=== PATIENT | male | born 1975 | race Caucasian/White ===

== ENCOUNTER 2019-10-01 02:49 | Emergency (ER) | payer OTHER ==
--- NOTE | 2019-10-01 03:05 | EDPHYS ---
Physician Documentation [facility] Name: Alber Hannah Age: 44 yrs Sex: Male : 1975 Arrival Date: 10/01/2019 Time: 02:50 Bed 18 Private MD: ED Physician Valente Cabrales HPI: 10/01 03:01 This 44 yrs old Male presents to ER via EMS with complaints of Suicidal karyn Ideation. 03:01 The patient presents to the emergency department with depression, over a , over a karyn relationship. Onset: The symptoms/episode began/occurred 2 day(s) ago. Past psychiatric history: Prior diagnosis: depression. Associated signs and symptoms: The patient has no apparent associated signs or symptoms. The patient has not experienced similar symptoms in the past. Historical: - Allergies: 03:03 No Known Allergies; wh - Home Meds: 03:03 atorvastatin oral oral [Active]; fenofibrate oral oral [Active]; glimepiride Oral wh [Active]; losartan oral oral [Active]; Metformin Oral [Active]; Tradjenta oral oral [Active]; - PMHx: 03:03 Diabetes - NIDDM; Hyperlipidemia; Hypertension; wh - Immunization history:: Adult Immunizations up to date. - Social history:: Smoking status: Patient uses tobacco products. - Family history:: not pertinent. - Ebola Screening: : Patient negative for fever greater than or equal to 101.5 degrees Fahrenheit, and additional compatible Ebola Virus Disease symptoms Patient denies exposure to infectious person. ROS: 03:01 Constitutional: Negative for fever, chills, and weight loss, Eyes: Negative for injury, karyn pain, redness, and discharge, ENT: Negative for injury, pain, and discharge, Neck: Negative for injury, pain, and swelling, Cardiovascular: Negative for chest pain, palpitations, and edema, Respiratory: Negative for shortness of breath, cough, wheezing, and pleuritic chest pain, Abdomen/GI: Negative for abdominal pain, nausea, vomiting, diarrhea, and constipation, Back: Negative for injury and pain, : Negative for injury, bleeding, discharge, and swelling, MS/Extremity: Negative for injury and deformity, Skin: Negative for injury, rash, and discoloration, Neuro: Negative for headache, weakness, numbness, tingling, and seizure, Allergy/Immunology: Negative for hives, rash, and allergies, Endocrine: Negative for neck swelling, polydipsia, polyuria, polyphagia, and marked weight changes, Hematologic/Lymphatic: Negative for swollen nodes, abnormal bleeding, and unusual bruising. 03:01 Psych: Positive for anxiety, depression, suicidal ideation. Exam: 03:01 Constitutional: This is a well developed, well nourished patient who is awake, alert, karyn and in no acute distress. Head/Face: Normocephalic, atraumatic. Eyes: Pupils equal round and reactive to light, extra-ocular motions intact. Lids and lashes normal. Conjunctiva and sclera are non-icteric and not injected. Cornea within normal limits. Periorbital areas with no swelling, redness, or edema. ENT: Nares patent. No nasal discharge, no septal abnormalities noted. Tympanic membranes are normal and external auditory canals are clear. Oropharynx with no redness, swelling, or masses, exudates, or evidence of obstruction, uvula midline. Mucous membranes moist. Neck: Trachea midline, no thyromegaly or masses palpated, and no cervical lymphadenopathy. Supple, full range of motion without nuchal rigidity, or vertebral point tenderness. No Meningismus. Chest/axilla: Normal chest wall appearance and motion. Nontender with no deformity. No lesions are appreciated. Cardiovascular: Regular rate and rhythm with a normal S1 and S2. No gallops, murmurs, or rubs. Normal PMI, no JVD. No pulse deficits. Respiratory: Lungs have equal breath sounds bilaterally, clear to auscultation and percussion. No rales, rhonchi or wheezes noted. No increased work of breathing, no retractions or nasal flaring. Abdomen/GI: Soft, non-tender, with normal bowel sounds. No distension or tympany. No guarding or rebound. No evidence of tenderness throughout. Back: No spinal tenderness. No costovertebral tenderness. Full range of motion. Male : Normal genitalia with no discharge or lesions. Skin: Warm, dry with normal turgor. Normal color with no rashes, no lesions, and no evidence of cellulitis. MS/ Extremity: Pulses equal, no cyanosis. Neurovascular intact. Full, normal range of motion. Neuro: Awake and alert, GCS 15, oriented to person, place, time, and situation. Cranial nerves II-XII grossly intact. Motor strength 5/5 in all extremities. Sensory grossly intact. Cerebellar exam normal. Normal gait. 03:01 Psych: Behavior/mood is cooperative, anxious, Affect is animated, Oriented to person, place, time, Patient has no thoughts/intents to harm self or others. Judgement / Insight is normal. Memory is normal. Delusions/hallucinations are not present. Vital Signs: 03:03 BP 141 / 108; Pulse 110; Resp 18; Temp 98.3; Pulse Ox 95% ; Weight 97.52 kg; Height 5 wh ft. 9 in. (175.26 cm); 05:26 BP 105 / 58 LA Sitting (auto/reg); Pulse 92 MON; Resp 18 S; Temp 98.4(O); Pulse Ox 96% ds4 on R/A; Pain 0/10; 08:28 BP 128 / 67; Pulse 87; Resp 18; Temp 98.0; Pulse Ox 99% on R/A; ph 03:03 Body Mass Index 31.75 (97.52 kg, 175.26 cm) wh MDM: 02:56 Patient medically screened. [facility] 03:03 Data reviewed: vital signs, nurses notes, lab test result(s), EKG. [facility] 10/01 03:01 Order name: Acetaminophen; Complete Time: 05:16 [facility] 10/01 03:01 Order name: Basic Metabolic Panel; Complete Time: 05:16 [facility] 10/01 03:01 Order name: CBC with Diff; Complete Time: 05:16 [facility] 10/01 03:01 Order name: ETOH Level; Complete Time: 05:16 [facility] 10/01 03:01 Order name: Hepatic Function; Complete Time: 05:16 [facility] 10/01 03:01 Order name: PT-INR; Complete Time: 05:16 [facility] 10/01 03:01 Order name: Ptt, Activated; Complete Time: 05:16 [facility] 10/01 03:01 Order name: Salicylate; Complete Time: 05:16 [facility] 10/01 03:01 Order name: Urine Drug Screen; Complete Time: 05:16 [facility] 10/01 03:01 Order name: TSH; Complete Time: 05:16 [facility] 10/01 03:13 Order name: Urine Dipstick--Ancillary (enter results) [place] 10/01 03:13 Order name: Urine Dipstick-Ancillary; Complete Time: 05:16 [facility] 10/01 03:01 Order name: EKG; Complete Time: 03:03 [facility] 10/01 03:01 Order name: EKG - Nurse/Tech; Complete Time: 04:34 [facility] 10/01 03:01 Order name: Labs collected and sent; Complete Time: 03:57 [facility] 10/01 03:01 Order name: Urine Dipstick-Ancillary (obtain specimen); Complete Time: 03:45 [facility] 10/01 07:36 Order name: Diet Regular; Complete Time: 07:37 ph Administered Medications: 03:45 Not Given (Patient Refused): Thiamine 100 mg IV at per protocol once ea 03:45 Not Given (Patient Refused): NS 0.9% 1000 ml IV at 1 bolus Per protocol; 1000 mL bolus ea Disposition: 10/01/19 03:04 Transfer ordered to [facility]. Diagnosis are Major depressive disorder, recurrent, Suicidal ideations, Alcohol abuse with intoxication. - Reason for transfer: Higher level of care. - Accepting physician is to psych. - Condition is Fair. - Problem is new. - Symptoms have improved. Signatures: Dispatcher [employer] [facility] Valente Cabrales MD MD cha Hall, Patricia, RN RN Linnea Sinha Elena RN ea Corrections: (The following items were deleted from the chart) 05:18 03:04 10/01/2019 03:04 Transfer ordered to [facility]. Diagnosis is karyn Major depressive disorder, recurrent; Suicidal ideations. Reason for transfer: Higher level of care. Accepting physician is to psych. Condition is Fair. Problem is new. Symptoms have improved. [facility] 08:29 05:18 10/01/2019 03:04 Transfer ordered to [facility]. Diagnosis is ph Major depressive disorder, recurrent; Suicidal ideations; Alcohol abuse with intoxication. Reason for transfer: Higher level of care. Accepting physician is to psych. Condition is Fair. Problem is new. Symptoms have improved. [facility]
--- NOTE | 2019-10-01 03:05 | ER ---
Nurse's Notes [facility] Name: Alber Hannah Age: 44 yrs Sex: Male : 1975 Arrival Date: 10/01/2019 Time: 02:50 Bed 18 Private MD: Diagnosis: Major depressive disorder, recurrent;Suicidal ideations;Alcohol abuse with intoxication Presentation: 10/01 02:55 Presenting complaint: EMS states: PT is feeling suicidal and has plans in place. Pt wh states this time last year he felt the same way too. Transition of care: patient was not received from another setting of care. Onset of symptoms was October 01, 2019. Risk Assessment: Do you want to hurt yourself or someone else? Patient reports desire/thoughts of hurting themselves or someone else. Provider notified. Initial Sepsis Screen: Does the patient meet any 2 criteria? HR > 90 bpm. Does the patient have a suspected source of infection? No. Patient's initial sepsis screen is negative. Care prior to arrival: None. 02:55 Method Of Arrival: EMS: [facility] 02:55 Acuity: JORJE 2 Historical: - Allergies: 03:03 No Known Allergies; wh - Home Meds: 03:03 atorvastatin oral oral [Active]; fenofibrate oral oral [Active]; glimepiride Oral wh [Active]; losartan oral oral [Active]; Metformin Oral [Active]; Tradjenta oral oral [Active]; - PMHx: 03:03 Diabetes - NIDDM; Hyperlipidemia; Hypertension; wh - Immunization history:: Adult Immunizations up to date. - Social history:: Smoking status: Patient uses tobacco products. - Family history:: not pertinent. - Ebola Screening: : Patient negative for fever greater than or equal to 101.5 degrees Fahrenheit, and additional compatible Ebola Virus Disease symptoms Patient denies exposure to infectious person. Screenin:58 Abuse screen: Denies threats or abuse. Denies injuries from another. Nutritional screening: No deficits noted. Tuberculosis screening: No symptoms or risk factors identified. Fall Risk None identified. Assessment: 02:58 General: Appears in no apparent distress. Behavior is anxious, uncooperative. Pain: wh Denies pain. Neuro: Level of Consciousness is awake, alert, obeys commands, Oriented to person, place, time, situation, Appropriate for age. Cardiovascular: Heart tones S1 S2. Respiratory: Airway is patent Respiratory effort is even, unlabored, Respiratory pattern is regular, symmetrical, Breath sounds are clear bilaterally. GI: Abdomen is flat, non-distended. : No signs and/or symptoms were reported regarding the genitourinary system. EENT: No signs and/or symptoms were reported regarding the EENT system. Derm: Skin is intact, is healthy with good turgor, Skin is pink, warm \\T\\ dry. normal. Musculoskeletal: Circulation, motion, and sensation intact. 03:37 Reassessment: Pt refused blood draw and EKG. States "you and the doctor can kiss my ea ass, you are not sticking me with a needle!!" Provider notified, charge nurse at bedside educating pt. Pt agreed to blood draw. 04:00 Reassessment: Patient and/or family updated on plan of care and expected duration. Pain ea level reassessed. Patient is alert, oriented x 3, equal unlabored respirations, skin warm/dry/pink. Sitter at bedside. 05:00 Reassessment: Pt resting with eyes closed, respirations even and unlabored, chest ea expansions even and symmetrical. No s/s of pain or discomfort noted at this time. 07:00 Reassessment: Patient appears in no apparent distress at this time. Patient and/or ph family updated on plan of care and expected duration. Pain level reassessed. Pt asleep in recliner, equal and unlabored respirations. 07:50 Reassessment: Patient appears in no apparent distress at this time. Patient and/or ph family updated on plan of care and expected duration. Pain level reassessed. Patient is alert, oriented x 3, equal unlabored respirations, skin warm/dry/pink. Report called to [facility], transfer form signed by pt. 08:27 Reassessment: Patient appears in no apparent distress at this time. Patient is alert, ph oriented x 3, equal unlabored respirations, skin warm/dry/pink. Pt eating breakfast, [facility] at bedside, pt transferred to [facility]. Psych: 02:57 Subjective: Patient's mood is irritable, Delusions are denied, Hallucinations are wh denied Having thoughts of suicide. Objective: Patient is uncooperative, Speech is normal, Affect is flat. Interventions: Removed personal items and placed in bag. Patient placed in hospital gown. Searched person for dangerous items. Urine collected and sent for urine drug test. Belonging list filled out. Suicide Risk Assessment: Sad Person Scale: Sex of patient: Male: Score 1 point. Age of patient: Score 0 point if patient falls outside of specified age parameters. Depression: Score 1 point if signs of depression are present. Previous Attempt: Score 0 point if patient has not previously attempted suicide. Substance Abuse: Score 0 point if patient does not abuse alcohol or drugs. Rational Thinking: Score 0 point if patient has rational thinking. Safety Checks: Personal items have been removed. Door is open. No visitors are present at this time. Pt denies substance abuse. Commitment: Patient will be a voluntary commitment. Vital Signs: 03:03 BP 141 / 108; Pulse 110; Resp 18; Temp 98.3; Pulse Ox 95% ; Weight 97.52 kg; Height 5 wh ft. 9 in. (175.26 cm); 05:26 BP 105 / 58 LA Sitting (auto/reg); Pulse 92 MON; Resp 18 S; Temp 98.4(O); Pulse Ox 96% ds4 on R/A; Pain 0/10; 08:28 BP 128 / 67; Pulse 87; Resp 18; Temp 98.0; Pulse Ox 99% on R/A; ph 03:03 Body Mass Index 31.75 (97.52 kg, 175.26 cm) ED Course: 02:50 Patient arrived in ED. ds1 02:56 Valente Cabrales MD is Attending Physician. karyn 02:57 Triage completed. wh 02:59 Arm band placed on right wrist. wh 03:00 Safety checks: Items removed: yes. Door open/sign placed on door: yes. Family/friend ds4 present: no. Sitter present: Yes. 03:03 Patient has correct armband on for positive identification. Placed in gown. Bed in low wh position. Call light in reach. Side rails up X 1. Sitter at bedside. 03:15 Safety checks: Items removed: yes. Door open/sign placed on door: yes. Family/friend ds4 present: no. Sitter present: Yes. 03:30 Safety checks: Items removed: yes. Door open/sign placed on door: yes. Family/friend ds4 present: no. Sitter present: Yes. 03:45 Safety checks: Items removed: yes. Door open/sign placed on door: yes. Family/friend ds4 present: no. Sitter present: Yes. 04:00 Safety checks: Items removed: yes. Door open/sign placed on door: yes. Family/friend ds4 present: no. Sitter present: Yes. 04:15 Safety checks: Items removed: yes. Door open/sign placed on door: yes. Family/friend ds4 present: no. Sitter present: Yes. 04:30 Safety checks: Items removed: yes. Door open/sign placed on door: yes. Family/friend ds4 present: no. Sitter present: Yes. 04:45 Safety checks: Items removed: yes. Door open/sign placed on door: yes. Family/friend ds4 present: no. Sitter present: Yes. 05:00 Safety checks: Items removed: yes. Door open/sign placed on door: yes. Family/friend ds4 present: no. Sitter present: Yes. 05:15 Safety checks: Items removed: yes. Door open/sign placed on door: yes. Family/friend ds4 present: no. Sitter present: Yes. 05:30 Safety checks: Items removed: yes. Door open/sign placed on door: yes. Family/friend ds4 present: no. Sitter present: Yes. 05:45 Safety checks: Items removed: yes. Door open/sign placed on door: yes. Family/friend ds4 present: no. Sitter present: Yes. 06:00 Safety checks: Items removed: yes. Door open/sign placed on door: yes. Family/friend ds4 present: no. Sitter present: Yes. 06:15 Safety checks: Items removed: yes. Door open/sign placed on door: yes. Family/friend ds4 present: no. Sitter present: Yes. 06:30 Safety checks: Items removed: yes. Door open/sign placed on door: yes. Family/friend ds4 present: no. Sitter present: Yes. 06:45 Safety checks: Items removed: yes. Door open/sign placed on door: yes. Family/friend ds4 present: no. Sitter present: Yes. 07:00 Safety checks: Items removed: yes. Door open/sign placed on door: yes. Family/friend ds4 present: no. Sitter present: Yes. 07:15 Safety checks: Items removed: yes. Door open/sign placed on door: yes. Family/friend em1 present: no. Sitter present: Yes. 07:30 Safety checks: Items removed: yes. Door open/sign placed on door: yes. Family/friend em1 present: no. Sitter present: Yes. 07:38 No provider procedures requiring assistance completed. Patient did not have IV access ph during this emergency room visit. 07:45 Safety checks: Items removed: yes. Door open/sign placed on door: yes. Family/friend em1 present: no. Sitter present: Yes. 07:48 Silva Mckeon, RN is Primary Nurse. ph 08:00 Safety checks: Items removed: yes. Door open/sign placed on door: yes. Family/friend em1 present: no. Sitter present: Yes. 08:15 Safety checks: Items removed: yes. Door open/sign placed on door: yes. Family/friend em1 present: no. Sitter present: Yes. 08:19 Diet tray given. em1 Administered Medications: 03:45 Not Given (Patient Refused): Thiamine 100 mg IV at per protocol once ea 03:45 Not Given (Patient Refused): NS 0.9% 1000 ml IV at 1 bolus Per protocol; 1000 mL bolus ea Outcome: 03:04 ER care complete, transfer ordered by . karyn 08:28 Transferred by ground EMS [place]. to [facility], Transfer form ph completed. 08:28 Condition: stable 08:29 Patient left the ED. ph Signatures: Valente Cabrales MD MD cha [place], Demi ds1 Erlin Brunson em1 Randal Vidal ds4 Silva Mckeon, Esther Kowalski RN, ph, RN RN ea [place], Winsy Corrections: (The following items were deleted from the chart) 07:58 07:57 Safety checks: Items removed: yes. Door open/sign placed on door: yes. em1 Family/friend present: no. Sitter present: Yes. em1
[2019-10-01 03:21] LABS: Urine Blood NEGATIVE (NEG); Urine Glucose NEGATIVE (NEG); Urine Protein NEGATIVE (NEG); Urine Specific Gravity <1.005 (1.005-1.030); Urine pH 5.5 (5.0-7.0)
[2019-10-01 03:59] LABS: Barbiturates NEGATIVE (NEGATIVE); Benzodiazepines NEGATIVE (NEGATIVE); Cocaine NEGATIVE (NEGATIVE); METHAMPHETAM NEGATIVE (NEGATIVE); Methadone NEGATIVE (NEGATIVE); Opiates NEGATIVE (NEGATIVE); Phencyclidine NEGATIVE (NEGATIVE); THC Cannibis NEGATIVE (NEGATIVE)
[2019-10-01 04:08] LABS: Basophils % 1.1 % (0-1.3); Hematocrit 47.3 % (39.6-49.0); MPV 8.9 fL (7.6-11.3); RBC Red Blood Cell Count 5.18 M/uL (4.33-5.43)
[2019-10-01 04:20] LABS: Protime INR 1.02
[2019-10-01 04:50] LABS: ALT/SGPT 94 U/L (12-78); AST/SGOT 50 U/L (15-37); Albumin 4.4 g/dL (3.4-5.0); Alkaline Phosphatase 67 U/L (45-117); BUN Blood Urea Nitrogen 5 mg/dL (7-18); Bicarbonate 24 mmol/L (21-32); Bilirubin Direct 0.1 mg/dL (0-0.2); Bilirubin Total 0.4 mg/dL (0.2-1.0); Glucose Level 136 mg/dL (74-106); Potassium 3.5 mmol/L (3.5-5.1); Protein, Total 8.7 g/dL (6.4-8.2); Sodium Level 140 mmol/L (136-145)
--- NOTE | 2019-10-01 06:32 | EKG ---
Test Date: 2019-10-01 Test Time: 04:08:16 [place] Welder: NOE MEASUREMENT RESULTS: Intervals: Rate: 99 CA: 162 QRSD: 102 QT: 342 QTc: 438 [place]: P: 48 CA: 162 QRS: 27 T: 38 INTERPRETIVE STATEMENTS: Normal sinus rhythm Possible Left atrial enlargement Borderline ECG No previous ECG available for comparison Electronically Signed On 10-01-19 06:31:54 EDUCATIONAL ADVISOR by Maximo Alarcon
[2019-10-01 15:41] VITALS: BP 128/67; TEMP 98; O2SAT 99
== END 2019-10-01 08:29 | disposition short-term general hospital (02) ==
LOC: ER 02:49
DX: R45.851 Suicidal ideations (principal); F10.129 Alcohol abuse with intoxication, unspecified; I10 Essential (primary) hypertension; E11.9 Type 2 diabetes mellitus without complications; E78.5 Hyperlipidemia, unspecified; Z72.0 Tobacco use
CPT/HCPCS: 36415; 80048; 80076; 80307; 80320; 80329; 81003; 84443; 85025; 85610; 85730; 93005; 99285